=== PATIENT | male | born 1985 | race Caucasian/White ===

== ENCOUNTER → 2018-04-24 | Outpatient (CLI) | payer MEDICAID | LOC: FIMAGING 13:05 | PROVIDERS: ATTEND Family Medicine | DX: M25.461 Effusion, right knee (principal) ==

== ENCOUNTER → 2018-05-19 | Outpatient (CLI) | payer MEDICAID | LOC: FCPNEURO 21:48 ==

== ENCOUNTER → 2018-06-05 | Outpatient (CLI) | payer MEDICAID | LOC: FIMAGING 19:18 | PROVIDERS: ATTEND Family Medicine | DX: M25.461 Effusion, right knee (principal); M24.10 Other articular cartilage disorders, unspecified site; M23.41 Loose body in knee, right knee ==

== ENCOUNTER 2018-07-11 07:40 | Day surgery (SDC) | payer MEDICAID ==
[2018-07-11] MEDS ORDERED: ceFAZolin 2 GM/DEXTROSE 100 ML IV ONE (07:58)
[2018-07-11] MEDS ORDERED: LR 1,000 ML IV ONE (07:59)
[2018-07-11] MEDS ORDERED: MIDAZOLAM 2 MG/2 ML VIAL IVP ONE (09:04)
--- NOTE | 2018-07-11 09:04 | PDANEPAE ---
ANE History of Present Illness right knee pain ANE Past Medical History - Cardiovascular History Hx Hypertension: Yes Hx Arrhythmias: No Hx Chest Pain: No Hx Coronary Artery / Peripheral Vascular Disease: No Hx CHF / Valvular Disease: No Hx Palpitations: No Cardiovascular History Comment: HX - HYPERTRIGLYCERIDES - Pulmonary History Hx COPD: No Hx Asthma/Reactive Airway Disease: No Hx Recent Upper Respiratory Infection: No Hx Oxygen in Use at Home: No Hx Sleep Apnea: Yes Sleep Apnea Screening Result - Last Documented: Positive Pulmonary History Comment: PNEUMONIA/BRONCHITIS 3 YRS AGO. POS SLEEP APNEA W/ CPAP - Neurologic History Hx Cerebrovascular Accident: No Hx Seizures: No Hx Dementia: No Neurologic History Comment: MIGRAINE HEADACHES OCCAS - Endocrine History Hx Diabetes: No Hypothyroid: No Hyperthyroid: No Obesity: moderate Endocrine History Comment: DM II - Renal History Hx Renal Disorders: No - Liver History Hx Hepatic Disorders: No - Neurological & Psychiatric Hx Hx Neurological and Psychiatric Disorders: No Neurological / Psychiatric History Comment: ADHD. ANXIETY/DEPRESSION - Cancer History Hx Cancer: No - Congenital Disorder History Hx Congenital Disorders: No - GI History Hx Gastrointestinal Disorders: No - Other Health History Other Health History: NEG - Chronic Pain History Chronic Pain: Yes (MARQUEZ KNEES) - Surgical History Prior Surgeries: L ACL. R ACL. L AC JOINT REPAIR. DENTAL SURG ANE Review of Systems Review of systems is: negative Review of Systems: - Exercise capacity Exercise capacity: >=4 METS METS (RN): 5 METS ANE Patient History - Allergies Allergies/Adverse Reactions: doxycycline Allergy (Verified 07/09/18 09:52) RASHES - Home Medications Home medications: home medication list seen and reviewed Home Medications: Clonazepam 03/10/10 [Last Taken 2 Days Ago ~07/09/18] MELATONIN 03/10/10 [Last Taken 1 Week Ago ~07/04/18] Invokana 07/09/18 [Last Taken 07/10/18] Losartan Potassium 07/09/18 [Last Taken 07/10/18 23:00] Topiramate 07/09/18 [Last Taken 07/10/18 23:00] Uloric 07/09/18 [Last Taken 07/10/18 23:00] Vyvanse 07/09/18 [Last Taken 07/10/18] ALPRAZolam [Xanax] 07/11/18 [Last Taken 07/10/18] - NPO status NPO Status: no food or drink >8 hours NPO Since - Liquids (Date): 07/11/18 NPO Since - Liquids (Time): 06:30 NPO Since - Solids (Date): 07/11/18 NPO Since - Solids (Time): 00:00 - Anes Hx Anes Hx: no prior problems - Smoking Hx Smoking Status: Former smoker - Family Anes Hx Family Hx Anesthesia Complications: NEG ANE Labs/Vital Signs - Vital Signs Vital Signs: reviewed preoperatively; see RN documention for details Blood Pressure: 143/94 Heart Rate: 78 Respiratory Rate: 16 O2 Sat (%): 94 Height: 187.96 cm Weight: 120.202 kg ANE Physical Exam - Airway Neck exam: FROM Mallampati Score: Class 2 Mouth exam: normal dental/mouth exam - Pulmonary Pulmonary: no respiratory distress - Cardiovascular Cardiovascular: regular rate and rhythym - ASA Status ASA Status: II ANE Anesthesia Plan Anesthesia Plan: GA w LMA
[2018-07-11] MEDS ORDERED: BUPIVACAINE 0.5% 30 ML SDV ONE (09:16)
--- NOTE | 2018-07-11 09:25 | PDHPUP ---
History & Physical Update H&P update statement: This history and physical update is based on an assessment of the patient which was completed after admission or registration (within 24 hours), but prior to the surgery/procedure. H&P update: H&P reviewed & patient examined, no change in patient's condition since H&P completed
[2018-07-11] MEDS ORDERED: fentaNYL 100 MCG/2 ML INJ ONE ×2 (09:46→11:53)
[2018-07-11] MEDS ORDERED: PROPOFOL 200 MG/20 ML VIAL ONE ×2 (09:46)
[2018-07-11] MEDS ORDERED: DEXAMETHASONE 4 MG/ML VIAL ONE ×2 (10:05)
[2018-07-11] MEDS ORDERED: ONDANSETRON 4 MG/2 ML VIAL ONE ×2 (10:05→11:37)
[2018-07-11] MEDS ORDERED: PHENYLEPHRINE HCL 100 MCG/ML SYR IVP PRN (11:27)
[2018-07-11] MEDS ORDERED: LABETALOL HCL 5 MG/ML 20 ML MDV IVP PRN (11:27)
[2018-07-11] MEDS ORDERED: METOCLOPRAMIDE 10 MG/2 ML VIAL IVP PRN (11:27)
[2018-07-11] MEDS ORDERED: PROMETHAZINE HCL 25 MG/ML INJ IVP PRN (11:27)
[2018-07-11] MEDS ORDERED: ACETAMINOPHEN 500 MG TAB PO PRN (11:27)
[2018-07-11] MEDS ORDERED: HYDROmorphONE/DILAUDID 1 MG/ML INJ IVP PRN (11:27)
[2018-07-11] MEDS ORDERED: DEXAMETHASONE 4 MG/ML VIAL IVP PRN (11:27)
[2018-07-11] MEDS ORDERED: DIAZEPAM 10 MG/2 ML SYR IVP PRN (11:27)
[2018-07-11] MEDS ORDERED: oxyCODONE IR 5 MG TAB PO PRN (11:27)
[2018-07-11] MEDS ORDERED: NALOXONE HCL 0.4 MG/ML INJ IVP PRN (11:27)
[2018-07-11] MEDS ORDERED: ALBUTEROL 3 ML DEYVIAL IH PRN (11:27)
[2018-07-11] MEDS ORDERED: MEPERIDINE 25 MG/0.5 ML AMP IVP PRN (11:27)
[2018-07-11] MEDS ORDERED: LR 500 ML IV PRN (11:27)
[2018-07-11] MEDS ORDERED: ONDANSETRON 4 MG/2 ML VIAL IVP PRN (11:27)
--- NOTE | 2018-07-11 11:27 | GOP ---
[f rep st] OPERATIVE REPORT DATE OF OPERATION: 07/11/2018 SURGEON: Kristian Bah MD CASH REGISTER SERVICER: Jaime Juan MD ANESTHESIA: General. PREOPERATIVE DIAGNOSIS: Right knee medial meniscus tear, right knee osteochondral lesion, right knee loose bodies. POSTOPERATIVE DIAGNOSIS: Right knee medial meniscus tear, right knee osteochondral lesion, right knee loose bodies. PROCEDURE PERFORMED: 1. Right knee arthroscopy with loose body removal. 2. Right knee arthroscopy with partial medial meniscectomy. 3. Right knee arthroscopy, chondroplasty, medial femoral condyle. FINDINGS: SPECIMENS: None. ESTIMATED BLOOD LOSS: 5 mL. INDICATIONS: This is a male with significant knee pain. He had an ACL approximately 10 years ago. The MRI confirmed he had some loose bodies which we felt were symptomatic as well as a meniscus tear. He also had some chondral wear. We did discuss a microfracture with the patient if this was full thickness. He declined a microfracture and stated he did not want this at this time. We discussed debriding the chondral edges, and he was amenable to that. We discussed risks for need for more surgery including a microfracture of the cartilage procedures, continued or progression of any arthritic changes given his known ACL history, nerve injury, continued pain, blood vessel injury, blood clot, stiffness. He would to proceed. Informed consent obtained. All questions were answered. He was marked preoperatively. DESCRIPTION OF PROCEDURE: He was taken to the operative suite, sterilely prepped and draped in normal fashion. Time-out was performed verifying the site , side, location, and there was agreement by everyone on the team. We made a lateral portal and medial portal. Debrided the fat pad and synovitis for visualization. I found the loose bodies just inferior to the patella and removed these. I checked the medial, lateral, and patellofemoral joint gutters and patellofemoral area, and there were no loose bodies. I inspected his ACL. This was mildly lax, but was intact consistent with his grade 1 Bonifacio's. On the lateral side, his cartilage showed no meniscus tear. On the medial side, he had grade 2 changes on the tibia, and there was a focal area of grade 4 wear on the femur. I did debride this back to stable edges. I did not perform a microfracture, however, due to his wishes. This did measure about 5 mm x 5 mm in area. This is in the center of the medial femoral condyle. He did have a small medial meniscus tear, and I did a partial meniscectomy with a biter. And debrided this with a shaver. I thoroughly inspected the knee for any sign of any more loose bodies and did not find any. The fluid was removed. He was closed with 3-0 Monocryl and Dermabond. He was injected with 0.5% plain Marcaine for anesthetic control, placed in a sterile dressing, taken to PACU in stable condition. COMPLICATIONS: None. DRAINS: None. CONDITION: Stable. /[id number]/MODL MTDD
--- NOTE | 2018-07-11 11:29 | POSTANESTH ---
Post Anesthetic Evaluation Cardiovascular Status: Normal, Stable Respiratory Status: Normal, Stable Level of Consciousness/Mental Status: Can Participate in Eval Pain Control: Adequate, Prn Tx Ordered Nausea/Vomiting Control: Adequate, Prn Tx Ordered Complications Possibly Related to Anesthesia: None Noted
[2018-07-11] MEDS: fentaNYL 100 MCG/2 ML INJ IVP PRN ×3 (11:57→12:22)
[2018-07-11] MEDS ORDERED: oxyCODONE IR 5 MG TAB ONE (11:59)
[2018-07-11 12:03] VITALS: BP 155/97
== END 2018-07-11 12:53 | disposition home or self-care (01) ==
LOC: FSGY 07:40
PROVIDERS: ATTEND Orthopaedic Surgery
PROC: 0SBC4ZZ Excision of Right Knee Joint, Percutaneous Endoscopic Approach (ICD-10-PCS; principal; 2018-07-11 09:45)
DX: M23.41 Loose body in knee, right knee (principal); M23.300 Other meniscus derangements, unspecified lateral meniscus, right knee; M25.519 Pain in unspecified shoulder; F41.9 Anxiety disorder, unspecified; E11.9 Type 2 diabetes mellitus without complications; I10 Essential (primary) hypertension; G47.33 Obstructive sleep apnea (adult) (pediatric); M10.9 Gout, unspecified; Z87.891 Personal history of nicotine dependence
CPT/HCPCS: J0690; J1100; J2250; J2405; J2704; J3010